=== PATIENT | male | born 1995 | race Native Hawaiian/Other Pacific Islander ===

== ENCOUNTER 2019-02-07 21:01 | Emergency (ER) | payer OTHER ==
[~2019-02-07] VITALS: Ht 177.8 cm; Wt 89.8 kg
[2019-02-07] MEDS ORDERED: LAMICTAL100 MG PO (21:15)
[2019-02-07] MEDS ORDERED: SEROQUEL400 MG PO (21:16)
[2019-02-07] MEDS ORDERED: VENLAFAXINE75 M2 PO (21:16)
[2019-02-07 22:26] VITALS: BP 138/82; TEMP 98.2
== END 2019-02-07 22:26 ==
LOC: ED 21:01
PROC: 0HQ0XZZ Repair Scalp Skin, External Approach (ICD-10-PCS; principal; 2019-02-07)
PROC: 0CQ00ZZ Repair Upper Lip, Open Approach (ICD-10-PCS; 2019-02-07)
DX: S01.01XA Laceration without foreign body of scalp, initial encounter (principal); S01.511A Laceration without foreign body of lip, initial encounter; S09.90XA Unspecified injury of head, initial encounter; Y04.0XXA Assault by unarmed brawl or fight, initial encounter; Y92.149 Unspecified place in prison as the place of occurrence of the external cause
CPT/HCPCS: 99283